=== PATIENT | female | born 2000 | race African-American/Black ===

== ENCOUNTER 2019-08-28 01:37 | Emergency (ER) | payer OTHER ==
[~2019-08-28] VITALS: Ht 170.2 cm; Wt 118.0 kg
[2019-08-28 01:59] VITALS: BP 137/78
[2019-08-28 03:27] LABS: CLARITY URINE CLEAR (CLEAR); COLOR URINE YELLOW (YELLOW); KETONES URINE TRACE (NEGATIVE); LEUKOCYTE ESTERASE URINE NEGATIVE (NEGATIVE); NITRITE URINE NEGATIVE (NEGATIVE); OCCULT BLOOD URINE NEGATIVE (NEGATIVE); PROTEIN URINE NEGATIVE (NEGATIVE); SPECIFIC GRAVITY URINE 1.037 (1.005-1.030); UROBILINOGEN URINE 0.2 E.U./dL (0.2-1.0)
[2019-08-28] MEDS ORDERED: CEFTRIAXONE SODIUM 250 MG/VIAL IM SCH (04:15)
[2019-08-28] MEDS ORDERED: AZITHROMYCIN 500 MG TABLET PO SCH (04:15)
[2019-08-28] MEDS ORDERED: LIDOCAINE HCL 1% 20ML VIAL (Pyxis) INJ INFIL SCH (04:15)
[2019-09-02 04:07] LABS: NEISSERIA GONORRHOEAE NAA Negative (Negative)
== END 2019-08-28 04:38 | disposition home or self-care (01) ==
LOC: ER 01:37
DX: Z20.2 Contact with and (suspected) exposure to infections with a predominantly sexual mode of transmission (principal)
CPT/HCPCS: 81003; 81025; 87491; 87591; 96372; 99283; J0696; J3490